=== PATIENT | male | born 1950 | race Caucasian/White ===

== ENCOUNTER → 2022-08-16 | Outpatient (CLI) | payer MEDICARE ==
[~2022-08-16] MED LIST: SIMV40
== END | disposition home or self-care (01) ==
LOC: PLD 13:05 → LAB SHORT 13:05
DX: L57.0 Actinic keratosis (principal)
CPT/HCPCS: 88305

== ENCOUNTER → 2024-09-03 | Outpatient (CLI) | payer MEDICARE | LOC: LAB SHORT 17:31 → LAB 17:31 | DX: L08.9 Local infection of the skin and subcutaneous tissue, unspecified (principal); Z71.89 Other specified counseling | CPT/HCPCS: 87070; 87077; 87186; 87205 ==